=== PATIENT | male | born 1995 | race Two or more races ===

== ENCOUNTER 2020-11-09 18:17 | Emergency (ER) | payer OTHER ==
[~2020-11-09] VITALS: Ht 185.4 cm; Wt 114.0 kg
[2020-11-09 18:28] VITALS: BP 130/82
[2020-11-09] MEDS ORDERED: IBUPROFEN 600 MG TABLET. PO ONE (18:30)
[2020-11-09] MEDS ORDERED: HYDROcodone/APAP 5/325MG 1 TAB TABLET PO ONE (18:30)
[2020-11-09] MEDS ORDERED: CYCL-331 PO (18:33)
[2020-11-09] MEDS ORDERED: IBUP600T16 PO (18:33)
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
== END 2020-11-09 18:42 | disposition home or self-care (01) ==
LOC: ER 18:17
DX: M54.2 Cervicalgia (principal); V43.62XA Car passenger injured in collision with other type car in traffic accident, initial encounter; Y93.89 Activity, other specified; Y92.89 Other specified places as the place of occurrence of the external cause; Y99.8 Other external cause status
CPT/HCPCS: 99283-25